=== PATIENT | male | born 1995 | race Caucasian/White ===

== ENCOUNTER 2020-02-18 17:32 | Inpatient (IN) | payer MEDICAID ==
[~2020-02-18] VITALS: Ht 177.8 cm; Wt 81.7 kg
[2020-02-18] MEDS ORDERED: mag hydrox/Alum hydrox/simeth 30ml oral suspension PO PRN (18:35)
[2020-02-18] MEDS ORDERED: loperamide 2mg capsule PO PRN (18:35)
[2020-02-18] MEDS ORDERED: magnesium hydroxide 30ml (MOM) UD suspension PO PRN (18:35)
[2020-02-18] MEDS ORDERED: NICOTINE POLACRILEX 2 MG LOZENGE BC PRN (18:35)
[2020-02-18] MEDS ORDERED: acetaminophen 325mg tablet PO PRN ×2 (18:35)
[2020-02-18] MEDS: LORazepam 1 MG tablet PO PRN (19:25)
[2020-02-18 20:06] VITALS: BP 126/80
--- NOTE | 2020-02-19 03:24 | NUR ---
ADMIT NOTE: The patient is a 24 y/o male who started drinking at age 16. He states that he was depressed and started drinking. Ever since then when he gets depressed he drinks. In the last 2 years, he went into heavy alcohol use, drinking up to 18 beers a day, usually [place] Light or [place]vert. He is still quite depressed and drinks up to 10 beers a day. CIWA protocol initiated. Patient denies drug use.
[2020-02-19 07:38] VITALS: BP 111/62
[2020-02-19] MEDS ORDERED: nicotine 21mg patch - 24 hr TD SCH (08:00)
[2020-02-19] MEDS ORDERED: NO HOME MEDS (10:33)
[2020-02-19 11:42] LABS: HEMOGLOBIN A1C 5.6 % (4.5-6.2)
[2020-02-19 12:03] LABS: CHOL/HDL RATIO 3.7 (0.00-4.99); CHOLESTEROL 246 MG/DL (0-200); HDL CHOLESTEROL 66 MG/DL (35-60); LDL CHOLESTEROL 142 MG/DL (50-100); TRIGLYCERIDES 173 MG/DL (20-135)
--- NOTE | 2020-02-19 16:50 | NUR ---
NURSING PROGRESS NOTE: Legal hold: 5150 Client on involuntary status for DTS Report received from nurse Leah RN with use of SBAR Why are they here: The patient is a 24 y/o male who started drinking at age 16. He reports, "In the past 2 years, I have been drinking up to 18 beers a day, usually [place] Light or [place]vert." Childhood trauma has led to his habitual behavior of binge drinking. Patient denies drug use. Assessment What has happened this shift: Pt has sat quietly on his bed working on a [employer]. Pt met with Dr. Flor and reports feeling good about the plan to treat his depression. He shared concerns about paying his bills. He called his job and spoke to HR to secure his job will be there when he gets out of the hospital. S/I, H/I: SI w/plan; H/I denied A/VH: Denies Sleep: Slept until breakfast ADL's: Pt showered washed clothes and put on clean personal clothing Group attendance: Yes; Art Therapy Were meds taken: Has not been started on this shift. Any med S/E: N/A Mental Status Exam Appearance: Clean, shaven young man wearing personal clothes Eye contact: Fair Behavior: Calm, withdrawn, quiet Speech: Audible low pitch and volume Mood: Guarded Affect: Congruent w/mood Thought process: Focused on treatment and getting the help he needs to be successful Thought Content: Getting better; stopping his drinking Cognition: A/O x4 Insight: Fair Judgment: Fair Interventions PRN's used: N/A Therapeutic interventions: Provided therapeutic communication w/active listening, encouraged pt to go to group and sit in the main room to listen to music and be around peers, q 15min safety checks provided. Restraints/seclusion/emergency medication: N/A Justification: Pt suffers from childhood trauma is binge drinking and is at risk of suicide. Pt reports he has "multiple ways to succeed at suicide." Pt is in crisis and is in need of mental health stabilization.
[2020-02-19 20:04] VITALS: BP 128/73
--- NOTE | 2020-02-19 22:02 | NUR ---
NURSING PROGRESS NOTE: Legal hold: 5150 Client on involuntary status for DTS Report received from nurse Clari RN with use of SBAR Why are they here: The patient is a 24 y/o male who started drinking at age 16. He reports, "In the past 2 years, I have been drinking up to 18 beers a day, usually [place] Light or [place]." Childhood trauma has led to his habitual behavior of binge drinking. Patient denies drug use. Assessment What has happened this shift: The patient was seen for 1:1 in the group room. He says he's doing fine. He's not showing any signs of withdrawal. the patient spent the entire evening playing [employer] or [employer]ODIL in group room. Denies any needs. S/I, H/I: SI w/plan; H/I denied A/VH: Denies Sleep: See sleep assessment ADL's: Independent Group attendance: No night groups Were meds taken: No scheduled meds. Any med S/E: N/A Mental Status Exam Appearance: Clean, shaven young man wearing personal clothes Eye contact: Fair Behavior: Calm, withdrawn, quiet Speech: Audible low pitch and volume Mood: Guarded Affect: Congruent w/mood Thought process: Focused on treatment and getting the help he needs to be successful Thought Content: Getting better; stopping his drinking Cognition: A/O x4 Insight: Fair Judgment: Fair Interventions PRN's used: N/A Therapeutic interventions: Provided therapeutic communication w/active listening, encouraged pt to go to group and sit in the main room to listen to music and be around peers, q 15min safety checks provided. Restraints/seclusion/emergency medication: N/A Justification: Pt suffers from childhood trauma is binge drinking and is at risk of suicide. Pt reports he has "multiple ways to succeed at suicide." Pt is in crisis and is in need of mental health stabilization.
[2020-02-19] MEDS: traZODone 50mg tablet PO PRN (22:12)
[2020-02-20 07:18] VITALS: BP 131/70
[2020-02-20] MEDS: ESCITALOPRAM OXALATE 5 MG TABLET PO SCH (08:22)
--- NOTE | 2020-02-20 17:19 | NUR ---
NURSING PROGRESS NOTE: Legal hold: 5150 Client on involuntary status for DTS Report received from nurse VLADIMIR Newman with use of SBAR Why are they here: The patient is a 24 y/o male who started drinking at age 16. He reports, "In the past 2 years, I have been drinking up to 18 beers a day, usually [place] Light or [place]." Childhood trauma has led to his habitual behavior of binge drinking. Patient denies drug use. Assessment What has happened this shift: Received pt sleeping in bed at shift change. Pt. is quiet spoken and isolates to himself in his room. Patient did attend art therapy this afternoon and reported that it was a good class. Patient plans for when he discharges is to go to live with his brother again, and go back to work. He states his depression has been getting bad in the last month and he has been drinking more to try and overcome it, but it made it worse in the end. Patient plans on remaining sober after discharge. S/I, H/I: Denies. A/VH: Denies Sleep: 3:25 hrs NOC. Reports sleeping difficulties. ADL's: Independent. Group attendance: Yes; Art Therapy Were meds taken: Yes. Any med S/E: N/A Mental Status Exam Appearance: Freshly showered in unit attire. Eye contact: Fair Behavior: Calm, withdrawn, quiet Speech: Audible low pitch and volume Mood: Guarded Affect: Congruent w/mood Thought process: Focused on treatment and getting the help he needs to be successful Thought Content: Getting better; stopping his drinking Cognition: A/O x4 Insight: Fair Judgment: Fair Interventions PRN's used: N/A Therapeutic interventions: Provided therapeutic communication w/active listening, encouraged pt to go to group and sit in the main room to listen to music and be around peers, q 15min safety checks provided. Restraints/seclusion/emergency medication: N/A Justification: Pt suffers from childhood trauma is binge drinking and is at risk of suicide. Pt reports he has "multiple ways to succeed at suicide." Pt is in crisis and is in need of mental health stabilization.
[2020-02-20 19:23] VITALS: BP 113/67
[2020-02-20] MEDS: traZODone 50mg tablet PO PRN ×2 (21:01→21:48)
[2020-02-20] MEDS: LORazepam 1 MG tablet PO PRN (21:01)
--- NOTE | 2020-02-21 00:49 | NUR ---
Nursing Progress Note: Legal hold: 5150 for being a danger to himself Report received from Kayla GILBERT with use of SBAR Why are they here: The patient is a 24 year old admitted on a 5150 hold for being a danger to himself after being evaluated at [facility] ER by [facility]. He was increasingly depressed and having suicidal thoughts. He had been drinking to excess to manage his depression and anxiety. Assessment What has happened this shift: One to one with the patient to discuss medications and discuss plan of care with him. Severity of depressive symptoms and self harm risk were evaluated. He remains on Q 15 minute safety checks. There have been no self injurious behaviors reported or observed. He appears clean and well groomed. His clothing is appropriate to the unit. He was friendly and cooperative during the evening assessment. He stated that his mood had improved since being admitted and stated, "It's a lot better than yesterday" He also stated that he had improved energy levels and that he had been eating well. He does report that his thinking is approximately 75% negative and that his thoughts are racing. He stated that his sleep was "terrible" last night even after two doses of Trazodone. He denied significant anxiety. He denies psychotic symptoms and none were evident during the assessment. He denies thoughts to harm others. He denied suicidal thoughts and added, "Today is probably the first time in a long time I haven't" He stated that he does want to live for his "life, friends and my family" The patient maintains good eye contact. Speech is spontaneous with a normal rate and rhythm. Insight and judgement are intact. He has been social with peers. His affect was congruent to stated mood. Justification of Continued Inpatient Treatment: The patient continues to have significant negative thinking patterns as well as racing thoughts. He continues to report poor sleep and MD is planning to adjust Trazodone per his note.
[2020-02-21 07:00] VITALS: BP 103/68
[2020-02-21] MEDS: ESCITALOPRAM OXALATE 5 MG TABLET PO SCH (08:08)
--- NOTE | 2020-02-21 17:34 | NUR ---
NURSING PROGRESS NOTE: Legal hold: 5150 Client on involuntary status for DTS Report received from nurse Paty RN with use of SBAR Why are they here: The patient is a 24 y/o male who started drinking at age 16. He reports, "In the past 2 years, I have been drinking up to 18 beers a day, usually [place] Light or [place]." Childhood trauma has led to his habitual behavior of binge drinking. Patient denies drug use. Assessment What has happened this shift: Received pt sleeping in bed at shift change. Patient awakened and took medications without incident. Patient reports that his depression is getting better. He is just trying to keep busy in here. He has been playing [employer] with peers this morning. Patient reports that the doctor wants him to stay until Wednesday or Wednesday, patient states he will probably stay until Wednesday, because he has to get back to work. S/I, H/I: Denies. A/VH: Denies Sleep: 7.75 hrs NOC ADL's: Independent. Group attendance: Yes; Art Therapy Were meds taken: Yes. Any med S/E: N/A Mental Status Exam Appearance: Freshly showered in unit attire. Eye contact: Fair Behavior: Calm, withdrawn, quiet Speech: Audible low pitch and volume Mood: Guarded Affect: Congruent w/mood Thought process: Focused on treatment and getting the help he needs to be successful Thought Content: Getting better; stopping his drinking Cognition: A/O x4 Insight: Fair Judgment: Fair Interventions PRN's used: N/A Therapeutic interventions: Provided therapeutic communication w/active listening, encouraged pt to go to group and sit in the main room to listen to music and be around peers, q 15min safety checks provided. Restraints/seclusion/emergency medication: N/A Justification: Pt suffers from childhood trauma is binge drinking and is at risk of suicide. Pt reports he has "multiple ways to succeed at suicide." Pt is in crisis and is in need of mental health stabilization.
[2020-02-21 20:18] VITALS: BP 111/76
[2020-02-21 20:19] VITALS: BP 111/76
[2020-02-21] MEDS: traZODone 50mg tablet PO PRN ×2 (21:03→21:41)
[2020-02-21] MEDS: LORazepam 1 MG tablet PO PRN (21:41)
--- NOTE | 2020-02-21 21:44 | NUR ---
Nursing Progress Note: Legal hold: 5250 for danger to self Report received from Meet GILBERT with use of SBAR Why are they here: The patient is a 24 year old admitted on a 5150 hold for being a danger to himself after being evaluated at [facility] ER by [facility]. He was increasingly depressed and having suicidal thoughts. He had been drinking to excess to manage his depression and anxiety. Assessment What has happened this shift: The patient has been up on the unit and has been friendly and social with peers and staff. He attended the evening group. He has been medication and treatment compliant and denies medication side effects. He stated he slept after 2nd trazodone. He appears clean and well groomed. He appears relaxed and stated he has very little anxiety. He denies problems with his concentration and focus. He stated that his mood was "good" but yesterday has "best" mood. He reports he has not real suicidal thoughts for the past couple of days. He stated that he has fleeting thoughts but no intent to act on them. He rationalized that the suicidal thoughts were a pattern of thinking and those thoughts come to mind at times. He has plans for the future which are goal oriented. He denies ETOH withdrawal symptoms and none were evident. He is stating that he is craving etoh. Psychotic symptoms are denied and there was evidence that he is responding to internal stimuli. His affect is congruent to stated mood. Replies to the assessment questions were logical linear and appropriate to what was asked. Insight and judgement are fair. Justification of Continued Inpatient Treatment: Medication adjustments continue. PRN medications given for sleep.
[2020-02-22] MEDS: ESCITALOPRAM OXALATE 5 MG TABLET PO SCH (07:37)
[2020-02-22 07:38] VITALS: BP 119/62
--- NOTE | 2020-02-22 15:53 | NUR ---
NURSING PROGRESS NOTE Legal hold: 5250 Client on involuntary status for DTS Report received from nurse Paty RN with use of SBAR Why are they here: The patient is a 24 y/o male who started drinking at age 16. He reports, "In the past 2 years, I have been drinking up to 18 beers a day, usually [place] Light or [place]vert." Childhood trauma has led to his habitual behavior of binge drinking. Patient denies drug use. Assessment What has happened this shift: Polite and cooperative, well groomed, social with peers, smiling and talking with others. Attended Art Therapy group. Denies active suicidal thoughts but has momentary fleeting thoughts of suicide at times. He is linear in his thoughts and does not appear to be RIS. Medication compliant. Pleasant. Affect seems incongruent with circumstances. S/I, H/I: some passive at times A/VH: Denies Sleep: none ADL's: Independent. Group attendance: Art Therapy Were meds taken: Yes. Any med S/E: N/A Mental Status Exam Appearance: Neat and clean Eye contact: good Behavior: social, cooperative, smiling Speech: clear Mood: smiling Affect: incongruent with circumstances Thought process: linear Thought Content: Getting better, sleeping at night Cognition: Alert Insight: Fair Judgment: Fair Interventions PRN's used: N/A Therapeutic interventions: Provided therapeutic communication w/active listening, encouraged pt to go to group and sit in the main room to listen to music and be around peers, q 15min safety checks provided. Restraints/seclusion/emergency medication: N/A Justification for continued inpatient services: Pt suffers from childhood trauma is binge drinking and is at risk of suicide. Pt reports he has "multiple ways to succeed at suicide." Pt is in crisis and is in need of mental health stabilization.
[2020-02-22 20:00] VITALS: BP 130/66
[2020-02-22] MEDS: traZODone 50mg tablet PO PRN (20:17)
[2020-02-22] MEDS: naltrexone 50mg tablet PO SCH (20:17)
[2020-02-22] MEDS: LORazepam 1 MG tablet PO PRN (21:47)
--- NOTE | 2020-02-23 00:09 | NUR ---
NURSING PROGRESS NOTE Legal hold: 5250 Client on involuntary status for DTS Report received from nurse VLADIMIR North with use of SBAR Why are they here: The patient is a 24 y/o male who started drinking at age 16. He reports, "In the past 2 years, I have been drinking up to 18 beers a day, usually [place] Light or [place]." Childhood trauma has led to his habitual behavior of binge drinking. Patient denies drug use. Assessment What has happened this shift: pt is friendly and cooperative for all assessments and care. Pt spent the evening socializing with other peers and appeared to having a fun time. Pt was seen laughing and smiling at various times during the evening. Pt denies being suicidal or having any other complaints. S/I, H/I: denies A/VH: Denies Sleep: none ADL's: Independent. Group attendance: n/a Were meds taken: Yes. Any med S/E: N/A Mental Status Exam Appearance: Neat and clean Eye contact: good Behavior: social, cooperative, smiling Speech: clear Mood: smiling Affect: incongruent with circumstances Thought process: linear Thought Content: socializing Cognition: Alert Insight: Fair Judgment: Fair Interventions PRN's used: ativan, trazadone Therapeutic interventions: Provided therapeutic communication w/active listening, encouraged pt to go to group and sit in the main room to listen to music and be around peers, q 15min safety checks provided. Restraints/seclusion/emergency medication: N/A Justification for continued inpatient services: Pt suffers from childhood trauma is binge drinking and is at risk of suicide. Pt reports he has "multiple ways to succeed at suicide." Pt is in crisis and is in need of mental health stabilization.
[2020-02-23 07:35] VITALS: BP 109/63
[2020-02-23] MEDS: ESCITALOPRAM OXALATE 5 MG TABLET PO SCH (07:55)
--- NOTE | 2020-02-23 10:40 | NUR ---
Initial: 75-100% PO intake. Regular diet. No nutrition problem. Recommend: 1. continue regular diet 2. bowel care as needed 3. weekly weights Addendum: 02/23/20 at [address] Amended: Links added.
--- NOTE | 2020-02-23 14:20 | NUR ---
NURSING PROGRESS NOTE Legal hold: 5250 Client on involuntary status for DTS Report received from nurse VLADIMIR Alvarez with use of SBAR Why are they here: The patient is a 24 y/o male who started drinking at age 16. He reports, "In the past 2 years, I have been drinking up to 18 beers a day, usually [place] Light or [place]vert." Childhood trauma has led to his habitual behavior of binge drinking. Patient denies drug use. Assessment What has happened this shift: Up for breakfast, took meds and then went back to sleep. Has new roommate and both are getting along very well. Had dose of Naltrexone last night and reports no cravings for etoh today. Reports feeling a bit "lower" today "but I'm not sure why." Talks of going back to work after discharge and is undecided about timing returning to work. He has no suicidal thoughts at this time. Interacts well with others and is polite and cooperative. S/I, H/I: denies A/VH: Denies Sleep: napped ADL's: Independent. Group attendance: yes Were meds taken: Yes. Any med S/E: N/A Mental Status Exam Appearance: Neat and clean Eye contact: good Behavior: social, cooperative, smiling Speech: clear Mood: mild depression Affect: congruent with mood Thought process: linear Thought Content: Getting better, returning to work, discharge Cognition: Alert Insight: Fair Judgment: Fair Interventions PRN's used: N/A Therapeutic interventions: Provided therapeutic communication w/active listening, encouraged pt to go to group and sit in the main room to listen to music and be around peers, q 15min safety checks provided. Restraints/seclusion/emergency medication: N/A Justification for continued inpatient services: Pt suffers from childhood trauma is binge drinking and is at risk of suicide. Pt reports he has "multiple ways to succeed at suicide." Pt is in crisis and is in need of mental health stabilization.
[2020-02-23] MEDS: LORazepam 1 MG tablet PO PRN (15:31)
[2020-02-23 19:00] VITALS: BP 119/71
[2020-02-23] MEDS: traZODone 50mg tablet PO PRN (20:40)
[2020-02-23] MEDS: naltrexone 50mg tablet PO SCH (20:40)
--- NOTE | 2020-02-24 00:46 | NUR ---
NURSING PROGRESS NOTE Legal hold: 5250 Client on involuntary status for DTS Report received from nurse VLADIMIR North with use of SBAR Why are they here: The patient is a 24 y/o male who started drinking at age 16. He reports, "In the past 2 years, I have been drinking up to 18 beers a day, usually [place] Light or [place]vert." Childhood trauma has led to his habitual behavior of binge drinking. Patient denies drug use. Assessment What has happened this shift: pt continues to be friendly and cooperative for all assessments and care. Pt is very social with other peers and was playing games for most of the evening. Pt smiles a lot and is generally easy going. Pt accepted hs meds without issue and did not have any behavior issues. S/I, H/I: denies A/VH: Denies Sleep: none ADL's: Independent. Group attendance: n/a Were meds taken: Yes. Any med S/E: N/A Mental Status Exam Appearance: Neat and clean Eye contact: good Behavior: social, cooperative, smiling Speech: clear Mood: smiling Affect: incongruent with circumstances Thought process: linear Thought Content: socializing Cognition: Alert Insight: Fair Judgment: Fair Interventions PRN's used: ativan, trazadone Therapeutic interventions: Provided therapeutic communication w/active listening, encouraged pt to go to group and sit in the main room to listen to music and be around peers, q 15min safety checks provided. Restraints/seclusion/emergency medication: N/A Justification for continued inpatient services: Pt suffers from childhood trauma is binge drinking and is at risk of suicide. Pt reports he has "multiple ways to succeed at suicide." Pt is in crisis and is in need of mental health stabilization.
[2020-02-24 07:29] VITALS: BP 121/81
[2020-02-24] MEDS: ESCITALOPRAM OXALATE 5 MG TABLET PO SCH (08:10)
--- NOTE | 2020-02-24 12:46 | NUR ---
NURSING PROGRESS NOTE Legal hold: 5250 Client on involuntary status for DTS Report received from nurse VLADIMIR Alvarez with use of SBAR Why are they here: The patient is a 24 y/o male who started drinking at age 16. He reports, "In the past 2 years, I have been drinking up to 18 beers a day, usually [place] Light or [place]vert." Childhood trauma has led to his habitual behavior of binge drinking. Patient denies drug use. Assessment What has happened this shift: Slept in and then up for breakfast. Getting along well with roommate. Mid morning he was confronted in hallway by a psychotic patient. This seemed to frighten patient and also anger him. Situation was diffused by staff and the patient walked away around the corner into another hallway. Education was provided to patient regarding milieu and other patients behaviors. The patient was teary eyed and did not want to discuss. Patient has identified as a stressor "childhood trauma." Patient was reassured of his safety and thanked for his composure. Interacting well with others, polite and cooperative. Per Dr. Flor, will keep patient a little longer and increase Lexapro, will not discharge on Wednesday due to high risk for etoh and SI relapse. S/I, H/I: denies A/VH: Denies Sleep: napped ADL's: Independent. Group attendance: yes Were meds taken: Yes. Any med S/E: N/A Mental Status Exam Appearance: Neat and clean Eye contact: good Behavior: social, cooperative, smiling Speech: clear Mood: mild depression Affect: congruent with mood Thought process: linear Thought Content: Getting better, returning to work, discharge Cognition: Alert Insight: Fair Judgment: Fair Interventions PRN's used: N/A Therapeutic interventions: Provided therapeutic communication w/active listening, encouraged pt to go to group and sit in the main room to listen to music and be around peers, q 15min safety checks provided. Restraints/seclusion/emergency medication: N/A Justification for continued inpatient services: Pt suffers from childhood trauma is binge drinking and is at risk of suicide. Pt reports he has "multiple ways to succeed at suicide." Pt is in crisis and is in need of mental health stabilization.
[2020-02-24 19:28] VITALS: BP 123/88
[2020-02-24] MEDS: traZODone 50mg tablet PO PRN (21:16)
[2020-02-24] MEDS: naltrexone 50mg tablet PO SCH (21:16)
--- NOTE | 2020-02-25 00:51 | NUR ---
NURSING PROGRESS NOTE Legal hold: 5250 Client on involuntary status for DTS Report received from nurse Chemo RN with use of SBAR Why are they here: The patient is a 24 y/o male who started drinking at age 16. He reports, "In the past 2 years, I have been drinking up to 18 beers a day, usually [place] Light or [place]." Childhood trauma has led to his habitual behavior of binge drinking. Patient denies drug use. Assessment What has happened this shift: Pt up on unit at start of shift talking with another male pt in group room. Later played cards with other pts and staff. Pt affect bright and animated. Pt talked about discharge. 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 He would be willing to go to a out patient rehab program. Pt believes his problem is with depression. He believes he drinks to self medicate. He thinks he needs out pt mental health care. S/I, H/I: denies A/VH: Denies Sleep: Asleep at this time ADL's: Independent. Group attendance: yes Were meds taken: Yes. Any med S/E: N/A Mental Status Exam Appearance: Neat and clean Eye contact: good Behavior: social, cooperative, smiling Speech: clear Mood: mild depression Affect: congruent with mood Thought process: linear Thought Content: Getting better, returning to work, discharge Cognition: Alert Insight: Fair Judgment: Fair Interventions PRN's used: N/A Therapeutic interventions: Provided therapeutic communication w/active listening, encouraged pt to go to group and sit in the main room to listen to music and be around peers, q 15min safety checks provided. Restraints/seclusion/emergency medication: N/A Justification for continued inpatient services: Pt suffers from childhood trauma is binge drinking and is at risk of suicide. Pt reports he has "multiple ways to succeed at suicide." Pt is in crisis and is in need of mental health stabilization.
[2020-02-25 07:19] VITALS: BP 112/63
[2020-02-25] MEDS ORDERED: ESCITALOPRAM OXALATE 5 MG TABLET PO SCH (08:00)
[2020-02-25] MEDS: LORazepam 1 MG tablet PO PRN (08:01)
--- NOTE | 2020-02-25 14:32 | NUR ---
NURSING PROGRESS NOTE Legal hold: 5250 Client on involuntary status for DTS Report received from nurse Padmini Geronimo RN with use of SBAR Why are they here: The patient is a 24 y/o male who started drinking at age 16. He reports, "In the past 2 years, I have been drinking up to 18 beers a day, usually [place] or [place]." Childhood trauma has led to his habitual behavior of binge drinking. Patient denies drug use. Assessment What has happened this shift: Pt asleep in bed at change of shift. Met with RN for 1:1 assessment at the bedside after breakfast. Pt is cooperative and engaged in conversation. Reports that he feels he is doing better in the hospital. It was killing me and ruining my life super fast. Now Im starting to feel back to normal. States that having a routine here at the hospital has been helpful and hes looking forward to getting back to work. Pt is social on the unit throughout the day. S/I, H/I: denies not for about 4 days A/VH: denies Sleep: Reports poor sleep last night due to anxiety. Dr. Flor will increase Trazodone tonight ADL's: Independent Group attendance: yes Were meds taken: yes Any med S/E: none observed or reported. Mild bilat hand tremor d/t anxiety Mental Status Exam Appearance: clean, wearing green hospital scrubs Eye contact: direct Behavior: anxious, cooperative, social, smiling Speech: clear Mood: depressed, but somewhat improved Affect: full range Thought process: linear, goal directed Thought Content: feels like hes getting better, but anxious about discharging home. Wants to return to work Cognition: A&Ox3 Insight: good Judgment: good Interventions PRN's used: Ativan Therapeutic interventions: Provided therapeutic communication w/active listening, encouraged pt to go to group and sit in the main room to listen to music and be around peers, q 15min safety checks provided. Restraints/seclusion/emergency medication: N/A Justification for continued inpatient services: Pt remains a high risk for suicide or rehospitalization if he were to discharge today.
[2020-02-25 20:05] VITALS: BP 115/76
[2020-02-25] MEDS: naltrexone 50mg tablet PO SCH (20:56)
[2020-02-25] MEDS: traZODone 50mg tablet PO PRN ×2 (20:59→22:33)
--- NOTE | 2020-02-26 00:37 | NUR ---
NURSING PROGRESS NOTE Legal hold: 5250 Client on involuntary status for DTS Report received from nurse VLADIMIR Mclain with use of SBAR Why are they here: The patient is a 24 y/o male who started drinking at age 16. He reports, "In the past 2 years, I have been drinking up to 18 beers a day, usually [place] or [place]." Childhood trauma has led to his habitual behavior of binge drinking. Patient denies drug use. Assessment What has happened this shift: Pt up on unit at start of shift talking with another male pt in group room. Later played cards with other pts and staff. Pt affect bright and animated. Pt played cards till late and went to bed immediately after. Took all meds cooperative with care. Pt was able to avoid escalating a disagreement with another male pt. The olther male pt very loud and was unreasonable. Pt verbalized acceptance of the fact that he will not be leaving tomorrow. Although he was hoping to get back to his job. S/I, H/I: denies A/VH: Denies Sleep: Asleep at this time ADL's: Independent. Group attendance: yes Were meds taken: Yes. Any med S/E: N/A Mental Status Exam Appearance: Neat and clean Eye contact: good Behavior: social, cooperative, smiling Speech: clear Mood: mild depression Affect: congruent with mood Thought process: linear Thought Content: Getting better, returning to work, discharge Cognition: Alert Insight: Fair Judgment: Fair Interventions PRN's used: N/A Therapeutic interventions: Provided therapeutic communication w/active listening, encouraged pt to go to group and sit in the main room to listen to music and be around peers, q 15min safety checks provided. Restraints/seclusion/emergency medication: N/A Justification for continued inpatient services: Pt suffers from childhood trauma is binge drinking and is at risk of suicide. Pt reports he has "multiple ways to succeed at suicide." Pt is in crisis and is in need of mental health stabilization.
[2020-02-26 07:27] VITALS: BP 113/60
[2020-02-26] MEDS: ESCITALOPRAM OXALATE 5 MG TABLET PO SCH (08:01)
[2020-02-26] MEDS: LORazepam 1 MG tablet PO PRN (13:16)
--- NOTE | 2020-02-26 17:35 | NUR ---
NURSING PROGRESS NOTE Legal hold: 5250 Client on involuntary status for DTS Report received from nurse Padmini Geronimo RN with use of SBAR Why are they here: The patient is a 24 y/o male who started drinking at age 16. He reports, "In the past 2 years, I have been drinking up to 18 beers a day, usually [place] or [place]." Childhood trauma has led to his habitual behavior of binge drinking. Patient denies drug use. Assessment What has happened this shift: Pt asleep in bed at change of shift. Pt up and visible on the unit in am interacting with staff and select peers. Pt is cooperative and engaged in conversation. Pt affect slightly blunted today and pt states he is a little bummed out because some of the patients he had bonded with have been discharged and he is looking forward to his own discharge. Pt denies suicidal thoughts, "for a while now" S/I, H/I: denies A/VH: denies Sleep: Reports poor sleep last night due to anxiety. Dr. Flor will increase Trazodone tonight ADL's: Independent Group attendance: yes Were meds taken: yes Any med S/E: none observed or reported. Mild bilat hand tremor d/t anxiety Mental Status Exam Appearance: clean, wearing green hospital scrubs Eye contact: direct Behavior: anxious, cooperative, social, smiling Speech: clear Mood: depressed, but somewhat improved Affect: full range Thought process: linear, goal directed Thought Content: feels like hes getting better, but anxious about discharging home. Wants to return to work Cognition: A&Ox3 Insight: good Judgment: good Interventions PRN's used: Ativan Therapeutic interventions: Provided therapeutic communication w/active listening, encouraged pt to go to group and sit in the main room to listen to music and be around peers, q 15min safety checks provided. Restraints/seclusion/emergency medication: N/A Justification for continued inpatient services: Pt remains a high risk for suicide or rehospitalization if he were to discharge today.
[2020-02-26 19:53] VITALS: BP 128/73
[2020-02-26] MEDS: traZODone 50mg tablet PO SCH (21:24)
[2020-02-26] MEDS: naltrexone 50mg tablet PO SCH (21:24)
--- NOTE | 2020-02-26 22:12 | NUR ---
Repeat dose Trazodone given
--- NOTE | 2020-02-27 01:29 | NUR ---
NURSING PROGRESS NOTE Legal hold: 5250 Client on involuntary status for DTS Report received from nurse Clari RN with use of SBAR Why are they here: The patient is a 24 y/o male who started drinking at age 16. He reports, "In the past 2 years, I have been drinking up to 18 beers a day, usually [place] or [place]." Childhood trauma has led to his habitual behavior of binge drinking. Patient denies drug use. Assessment What has happened this shift: Pt up on unit at start watching TV. He is sad because a friend he made on the unit discharged today. Pt said Dr. 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 Pt understands that will help him to be successful at DC. Took all meds cooperative with care. Pt was able to avoid escalating a disagreement with another male pt. The olther male pt very loud and was unreasonable. Pt verbalized acceptance of the fact that he will not be leaving tomorrow. Although he was hoping to get back to his job. S/I, H/I: denies A/VH: Denies Sleep: Asleep at this time ADL's: Independent. Group attendance: yes Were meds taken: Yes. Any med S/E: N/A Mental Status Exam Appearance: Neat and clean Eye contact: good Behavior: social, cooperative, smiling Speech: clear Mood: mild depression Affect: congruent with mood Thought process: linear Thought Content: Getting better, returning to work, discharge Cognition: Alert Insight: Fair Judgment: Fair Interventions PRN's used: Trazodone Therapeutic interventions: Provided therapeutic communication w/active listening, encouraged pt to go to group and sit in the main room to listen to music and be around peers, q 15min safety checks provided. Restraints/seclusion/emergency medication: N/A Justification for continued inpatient services: Pt suffers from childhood trauma is binge drinking and is at risk of suicide. Pt reports he has "multiple ways to succeed at suicide." Pt is in crisis and is in need of mental health stabilization.
[2020-02-27 07:04] VITALS: BP 102/52
[2020-02-27] MEDS: ESCITALOPRAM OXALATE 5 MG TABLET PO SCH (08:11)
[2020-02-27] MEDS: LORazepam 1 MG tablet PO PRN ×2 (12:40→21:09)
--- NOTE | 2020-02-27 16:56 | NUR ---
NURSING PROGRESS NOTE Legal hold: 5250 Client on involuntary status for DTS Report received from nurse Paty RN with use of SBAR Why are they here: The patient is a 24 y/o male who started drinking at age 16. He reports, "In the past 2 years, I have been drinking up to 18 beers a day, usually [place] or [place]." Childhood trauma has led to his habitual behavior of binge drinking. Patient denies drug use. Assessment What has happened this shift: Pt asleep in bed at change of shift. Pt up and visible on the unit interacting with staff and select peers. Pt is cooperative and engaged in conversation. Pt affect brighter today and pt states he is looking forward to his discharge. Pt denies suicidal thoughts. S/I, H/I: denies A/VH: denies Sleep: brief napping throughout the day. ADL's: Independent Group attendance: yes Were meds taken: yes Any med S/E: none observed or reported. Mild bilat hand tremor d/t anxiety Mental Status Exam Appearance: clean, wearing green hospital scrubs Eye contact: direct Behavior: anxious, cooperative, social, smiling Speech: clear Mood: depressed, but somewhat improved Affect: full range Thought process: linear, goal directed Thought Content: feels like hes getting better, but anxious about discharging home. Wants to return to work Cognition: A&Ox3 Insight: good Judgment: good Interventions PRN's used: Ativan Therapeutic interventions: Provided therapeutic communication w/active listening, encouraged pt to go to group and sit in the main room to listen to music and be around peers, q 15min safety checks provided. Restraints/seclusion/emergency medication: N/A Justification for continued inpatient services: Pt remains a high risk for suicide or rehospitalization if he were to discharge today.
[2020-02-27 20:01] VITALS: BP 143/68
[2020-02-27] MEDS: naltrexone 50mg tablet PO SCH (21:08)
[2020-02-27] MEDS: traZODone 50mg tablet PO SCH ×2 (21:09→22:22)
--- NOTE | 2020-02-28 01:52 | NUR ---
Nursing Progress Note: Legal hold: 5250 for danger to self Report received from Meet GILBERT with use of SBAR Why are they here: The patient is a 24 year old admitted on a 5150 hold for being a danger to himself after being evaluated at [facility] by [facility]. He was increasingly depressed and having suicidal thoughts. He had been drinking to excess to manage his depression and anxiety Assessment What has happened this shift: The patient was up on the unit and social with peers. He was friendly on approach for the evening assessment. He is anticipating that he will be discharged back to [facility] tomorrow. He stated that he has had more anxiety over the past several days and that he has had increasing problems with insomnia. He described his sleep as "terrible" He had the increased Trazodone dose with a repeat as well as ativan at HS. S/I, H/I: The patient denies active or passive suicidal thinking and believes he can be safe at home. A/VH: none Sleep: difficulty with falling asleep ADL's: clean and well groomed Group attendance: No groups this shift Were meds taken: yes Any med S/E The patient may have increased insomnia and anxiety from the naltraxone Mental Status Exam Appearance: Clean well groomed. Appropriately dressed Eye contact: WNL Behavior: Polite pleasant Speech: Spontaneous with moderate rate and rhythm. Mood: anxious Affect: Congruent to stated mood Thought process: Logical linear Thought Content: Situational difficulties. Discharging tomorrow. Cognition: Alert and oriented Insight: Intact Judgment: Intact Interventions PRN's used: PRN ativan and trazodone Justification of Continued Inpatient Treatment: The patient is planning to be discharged tomorrow back to [facility]. He stated he did not know what his follow up discharge plan was .
[2020-02-28] MEDS ORDERED: ESCI20TA56 PO (07:14)
[2020-02-28] MEDS ORDERED: TRAZ-251 PO (07:14)
[2020-02-28] MEDS ORDERED: NALT50TA PO (07:14)
[2020-02-28 07:18] VITALS: BP 105/53
[2020-02-28] MEDS: ESCITALOPRAM OXALATE 5 MG TABLET PO SCH (08:30)
--- NOTE | 2020-02-28 12:37 | NUR ---
Discharge: Discharge instructions including f/u appt and medications reviewed with the pt., he verbalized understanding, signed and was given a copy. Smoking cessation education provided to the pt. All belongings returned to the pt and he agreed he has all he came with and signed. Pt looking forward to discharge, had bright affect, denies depression and suicidal ideation. DC'd at 1040 to mother.
== END 2020-02-28 10:40 | disposition home or self-care (01) | DRG 751 ==
LOC: ADULT MH 18:05
PROVIDERS: ADMIT Psychiatry & Neurology Psychiatry; ATTEND Psychiatry & Neurology Psychiatry
DX: F33.2 Major depressive disorder, recurrent severe without psychotic features (principal); F10.20 Alcohol dependence, uncomplicated; F41.0 Panic disorder [episodic paroxysmal anxiety]; R45.851 Suicidal ideations; F41.9 Anxiety disorder, unspecified; Z88.8 Allergy status to other drugs, medicaments and biological substances; Z91.013 Allergy to seafood
CPT/HCPCS: 36415; 80061; 83036; 84443; 87081